=== PATIENT | male | born 1990 | race Hispanic/Latino ===

== ENCOUNTER 2019-03-04 15:20 | Emergency (ER) | payer OTHER ==
[2019-03-04 15:37] VITALS: BP 107/70; RESP 16; TEMP 98.5; O2SAT 97
--- NOTE | 2019-03-04 15:52 | ED PDOC ---
HPI: General Adult Time Seen by Provider: 03/04/19 15:45 Chief Complaint (Nursing): Back Pain Chief Complaint (Provider): BACK PAIN History Per: Patient (28 Y/O MALE HERE WITH LOWER BACK PAIN THAT OCCURRED WHILE PLAYING BASKETBALL TODAY. STATES HE JUMPED UP AND WHEN HE LANDED ON FEET FELT BACK "LOCK UP." NOTES TIGHTNESS RIGHT LOWER LUMBAR REGION.) Past Medical History Reviewed: Historical Data, Nursing Documentation, Vital Signs Vital Signs: Last Vital Signs Temp 98.5 F 03/04/19 15:36 Pulse 95 H 03/04/19 15:36 Resp 16 03/04/19 15:36 BP 107/70 03/04/19 15:36 Pulse Ox 97 03/04/19 15:36 Primary Care Provider: Procedure,Nonphys - Family History Family History: States: No Known Family Hx - Home Medications Home Medications: Ambulatory Orders Medication Instructions Recorded Naproxen 375 mg PO Q8 PRN #21 tablet 03/04/19 diaZEpam [Valium] 5 mg PO Q8 PRN #3 tab 03/04/19 - Allergies Allergies/Adverse Reactions: Allergies Allergy/AdvReac Type Severity Reaction Status Date / Time No Known Allergies Allergy Verified 03/04/19 15:49 Review of Systems ROS Statement: Except As Marked, All Systems Reviewed And Found Negative Physical Exam - Reviewed Nursing Documentation Reviewed: Yes Vital Signs Reviewed: Yes - Physical Exam Appears: Positive for: Well, Non-toxic, No Acute Distress Head Exam: Positive for: ATRAUMATIC, NORMAL INSPECTION, NORMOCEPHALIC Skin: Positive for: Normal Color, Warm, DRY Eye Exam: Positive for: EOMI, Normal appearance, PERRL ENT: Positive for: Normal ENT Inspection Neck: Positive for: Normal, Painless ROM Cardiovascular/Chest: Positive for: Regular Rate, Rhythm Respiratory: Positive for: CNT, Normal Breath Sounds Gastrointestinal/Abdominal: Positive for: Normal Exam, Soft Back: Positive for: Normal Inspection, Vertebral Tenderness (RIGHT PARALUMBAR TENDEERNESS.) Extremity: Positive for: Normal ROM Neurological/Psych: Positive for: Awake, Alert, Normal Tone - ECG O2 Sat by Pulse Oximetry: 97 - Progress ED Course And Treament: HEARTRATE RE-EVALUATED. NOTED AT 82 REGULAR RATE ON HEART MONITOR. toradol 30 mg IM x dose Valium 5 mg x 1 dose Disposition - Clinical Impression Clinical Impression: Back strain - Patient ED Disposition Is Patient to be Admitted: No - Disposition Disposition: Routine/Home Disposition Time: 16:38 Condition: FAIR Prescriptions: diaZEpam [Valium] 5 mg PO Q8 PRN #3 tab PRN Reason: Muscle Spasm Naproxen 375 mg PO Q8 PRN #21 tablet PRN Reason: Pain, Moderate (4-7) Instructions: Muscle Strain (DC) Forms: [facility] ED School/Work Excuse
[2019-03-04 17:08] VITALS: PULSE 86
== END 2019-03-04 17:04 | disposition home or self-care (01) ==
LOC: H.ER 15:20
DX: S39.012A Strain of muscle, fascia and tendon of lower back, initial encounter (principal); X50.9XXA Other and unspecified overexertion or strenuous movements or postures, initial encounter; Y93.67 Activity, basketball
CPT/HCPCS: 96372; 99284; J1885